=== PATIENT | male | born 1975 | race Caucasian/White ===

== ENCOUNTER 2024-03-10 14:30 | Outpatient (AMB) | payer BC, SELFPAY ==
--- NOTE | 2024-03-10 14:39 | MHC.OFFVIS ---
Vital Signs 03/10/24 14:43 Height 6 ft Weight 289 lb 8 oz BMI 39.3 BP 132/82 Blood Pressure Location Rt brachial Position Sitting Respiration 16 Pulse 101 H Pulse Source Pulse Oximeter Pulse Oximetry (%) 97 Oxygen Delivery Method Room Air Intake Visit Reasons: ENP-Snoring,witnesses apnea and daytime fatigue Intake Note: Pt presents for new pt evaluation for snoring and daytime fatigue. Last PSG done in 2011- WNL. Religion Teacher Required: No Allergies No Known Allergies Allergy (Verified 03/10/24 14:39) Medication List - Last Reconciled 03/10/24 by Johanna Cárdenas MD amlodipine 5 mg PO DAILY fluticasone propionate 50 mcg/actuation (Allergy Relief (fluticasone)) 1 spray intranasal DAILY nabumetone 500 mg PO BID HPI Comments Details: 48y/o male comes for sleep evaluation . Main complaints-loud snoring Sleep questionnaire- Difficulty falling asleep-no Difficulty staying asleep-yes Number of [id number] Snoring-yes Witnessed apneas-yes Gasping arousals-yes Nocturia-yes/ GERD-no Vivid dreams-yes Acting out dreams -no Abnormal behavior in sleep-no ABnormal movements in sleep-no Morning headaches-no Excessive daytime sleepiness-no Daytime naps- yes restless legs- no Hallucinations- no sleep paralysis- no Drop attacks- no Sleep study-yes 2011 He gained about 40 lbs since then Sleep Hygiene- Sleep time-9pm Wake time -5.45 am coffee/stimulant use- random [facility] Medical History (Updated 03/10/24 @ 15:00 by Johanna Cárdenas MD) Hypersomnia Witnessed episode of apnea Loud snoring Low back pain Fatty liver Contact dermatitis Prediabetes Obesity HTN (hypertension) Surgical History H/O vasectomy Family History Father No problems noted. Brother Testicular cancer Social History Household Members: Spouse and Children Housing: House Alcohol intake: current Comment: Weekends- 5-6 beers Patient Tobacco Use Status: Never used Tobacco Use of substances other than those prescribed or required for medical reasons: No Physical Exam Vital Signs: Last Vital Signs Pulse 101 H 03/10/24 14:43 Resp 16 03/10/24 14:43 BP 132/82 03/10/24 14:43 Pulse Ox 97 03/10/24 14:43 Oxygen Delivery Method Room Air 03/10/24 14:43 BMI result Body Mass Index 39.3 Const General: cooperative, healthy appearing and comfortable Nutritional Appearance: obese Orientation/consciousness: patient oriented x3 HEENT Head: Yes normal to inspection and Yes normocephalic Eyes Pupils: Equal, round and reactive pupils present Neuro Other: Mallampatti grade 4 General: patient oriented x3, gait normal, tone normal, moves all extremities and no focal motor deficits Cranial nerves: Yes Facial sensation intact/muscles of mastication intact, Yes Equal, round and reactive pupils present, Yes Bilaterally intact EOM present, Yes Nystagmus not present, Yes Normal facial strength present, Yes Midline tongue present and Yes Symmetric palate elevation present Cognition (Neuro): normal cognition Gait exam (Neuro): Normal gait present Assessment & Plan Assessment & Plan (1) Loud snoring: Code(s): R06.83 - Snoring Category: Medical (2) Witnessed episode of apnea: Code(s): R06.81 - Apnea, not elsewhere classified Category: Medical (3) Hypersomnia: Code(s): G47.10 - Hypersomnia, unspecified Category: Medical Plan I will schedule him for a home sleep test to r/o sleep apnea. Orders: Orders RT home sleep study Today G47.10 - Hypersomnia, unspecified, R06.81 - Apnea, not elsewhere classified, R06.83 - Snoring Coding Level of Care Code New Pt Level 3 (80389) Diagnoses Loud snoring R06.83 Witnessed episode of apnea R06.81 Hypersomnia G47.10 Wever Sleepiness Scale Questions Sitting and reading: would never doze Watching TV: would never doze Sitting inactive in a theater, movie etc.: would never doze As a passenger in a car for an hour without break: would never doze Lying down in the afternoon when circumstances permit: slight chance of dozing Sitting and talking to someone: would never doze Sitting quietly after lunch without alcohol: would never doze In a car, while stopped for a few minutes in the traffic: would never doze ESS < 10: normal, ESS > 12: pathologic: 1
[2024-03-10 14:43] VITALS: BP 132/82; PULSE 101; RESP 16; O2SAT 97; BMI 39.3
== END 2024-03-10 15:04 | disposition home or self-care (01) ==
PROVIDERS: PCP Family Medicine; Visit Provider Psychiatry & Neurology Neurology
DX: R06.83 Snoring (principal); R06.81 Apnea, not elsewhere classified; G47.10 Hypersomnia, unspecified
CPT/HCPCS: 99203

== ENCOUNTER → 2024-03-10 14:30 | Outpatient (BNVA) | payer BC, SELFPAY | PROVIDERS: PCP Family Medicine; Visit Provider Psychiatry & Neurology Neurology ==

== ENCOUNTER → 2024-04-14 10:48 | Outpatient (REF) | payer BC, SELFPAY | LOC: HO.SL 10:48 | PROVIDERS: PCP Family Medicine; Visit Provider Psychiatry & Neurology Neurology | DX: R06.81 Apnea, not elsewhere classified (principal); R06.83 Snoring; G47.10 Hypersomnia, unspecified | CPT/HCPCS: 95806 ==

== ENCOUNTER → 2024-04-14 11:01 | Outpatient (BNV) | payer BC, SELFPAY | PROVIDERS: PCP Family Medicine; Visit Provider Psychiatry & Neurology Neurology | DX: R06.83 Snoring (principal) | CPT/HCPCS: 95806 ==

== ENCOUNTER → 2024-07-03 19:30 | Outpatient (REF) | payer BC, SELFPAY | LOC: HO.SL 19:30 | PROVIDERS: PCP Family Medicine; Visit Provider Psychiatry & Neurology Neurology | DX: G47.10 Hypersomnia, unspecified (principal); R06.81 Apnea, not elsewhere classified; R06.83 Snoring | CPT/HCPCS: 95810 ==

== ENCOUNTER → 2024-07-03 21:21 | Outpatient (BNV) | payer BC, SELFPAY | PROVIDERS: PCP Family Medicine; Visit Provider Psychiatry & Neurology Neurology | DX: G47.33 Obstructive sleep apnea (adult) (pediatric) (principal) | CPT/HCPCS: 95810 ==

== ENCOUNTER 2024-09-16 13:45 | Outpatient (AMB) | payer BC, SELFPAY ==
[2024-09-16 13:51] VITALS: BMI 39.2
--- NOTE | 2024-09-16 13:51 | A.OFFVIS_ITS ---
Vital Signs 09/16/24 13:51 Height 6 ft Weight 289 lb BMI 39.2 Intake Visit Reasons: Follow up Sleep Intake Note: Patient presents for sleep Allergies No Known Allergies Allergy (Verified 09/16/24 13:55) Medication List - Last Reconciled 09/16/24 by Axel Sinclair PA-C amlodipine 5 mg PO DAILY fluticasone propionate 50 mcg/actuation (Allergy Relief (fluticasone)) 1 spray intranasal DAILY nabumetone 500 mg PO BID HPI Comments Details: 48y/o male comes for sleep evaluation . He uses the full face mask is okay, goes to bed at 10-11pm and gets up at 6:45am, gets up for the bathroom 2x, he works for an [employer] and constantly on the computer, uses blue light glasses and multiple eye breaks, through the day. Not too much of a difference, with CPAP use at the moment, however snoring is better per his . Headaches first two nights, felt like he couldn't breathe well but adjusting to it. Denies vision change, N/V, vertigo, dizziness, balance or gait issues. CPAP compliance on phone suki 21 days of use, total usage 6 hours and 27 min, AHI is <0.4, Pressures are at [id number] He is concerned about his weight BMI is 39 today and being pre-diabetic, he would like to speak with weight management, he has gained about 40lbs. He has spoken to PCP - Dr. Plata about his concerns and is ready to make some lifestyle changes. He washes his mask, changes filters and water as needed. [facility] Medical History Hypersomnia Witnessed episode of apnea Loud snoring Low back pain Fatty liver Contact dermatitis Prediabetes Obesity HTN (hypertension) Surgical History H/O vasectomy Family History Father No problems noted. Brother Testicular cancer Social History Household Members: Spouse and Children Housing: House Alcohol intake: current Comment: Weekends- 5-6 beers Patient Tobacco Use Status: Never used Tobacco Review of Systems Const All systems reviewed & are unremarkable except as noted in HPI and below Physical Exam Vital Signs: BMI result Body Mass Index 39.2 Const General: cooperative, healthy appearing and comfortable Nutritional Appearance: obese Orientation/consciousness: patient oriented x3 HEENT Head: Yes normal to inspection and Yes normocephalic Eyes Pupils: Equal, round and reactive pupils present Neuro Other: Mallampatti grade 4 General: patient oriented x3, gait normal, tone normal, moves all extremities and no focal motor deficits Cranial nerves: Yes Facial sensation intact/muscles of mastication intact, Yes Equal, round and reactive pupils present, Yes Bilaterally intact EOM present, Yes Nystagmus not present, Yes Normal facial strength present, Yes Midline tongue present and Yes Symmetric palate elevation present Cognition (Neuro): normal cognition Gait exam (Neuro): Normal gait present Results Reviewed Results Reviewed: Polysomnography Jul 2024 2 apnea events AI of 0.5/hour. 19 hypopnea events occurred for a hypopnea index of 4.9/hour of sleep. 21 apnea and hypopnea events were observed. Desaturations SaO2 was 81%. the duration of O2 less than 88% was 5.1 min. Snoring, soft to moderate. 21 arousals = 6 respiratory arousals, 2 leg movemn No PLMD Assessment & Plan Assessment & Plan (1) Obesity: Code(s): E66.9 - Obesity, unspecified Category: Medical Qualifiers: Body mass index: BMI 39.0-39.9 Obesity classification: adult class 2 (BMI 35 - 39.9) Obesity type: due to excess calories Serious obesity comorbidity presence: unspecified whether serious comorbidity present Qualified Code(s): E66.812 - Obesity, class 2; E66.09 - Other obesity due to excess calories; Z68.39 - Body mass index [BMI] 39.0-39.9, adult (2) Obstructive sleep apnea hypopnea, moderate: Code(s): G47.33 - Obstructive sleep apnea (adult) (pediatric) Category: Medical Plan -CPAP use average hours 6.32 min / night, Total average days 4.25min, Pressures [id number], AHI 0.5 -Patient advised to get at least 7-8 hours of sleep per night. Compliance is stressed today. -Going to bed at a scheduled time and waking up at a set scheduled time, helps to regulate the (sleep,wake cycle, body temperature and release of regulatory hormone which balance the natural circadian rhythm). -Cool, dark environment with soft music, no electronic devices, sets the environment optimizing sleep. -Daily exercise, night time yoga, soft music, diffusing essential oils can help to relax the mind prior to sleep. -Limit caffeine, and fluids to four hours prior to bedtime. - Weight Management, BMI is 29.2, will refer him for management and consultation. -Discussed Mediterranean Diet, and the Dash Diet as patient has several co- morbidities and weight reduction for good outcomes. -Lifestyle changes, exercise 3-5 times per week and daily walking can help with weight reduction. Orders: Referrals Medical Weight Management Referral E66.9 - Obesity, unspecified Coding Level of Care Code Est Pt Level 4 (17012) Diagnoses Class 2 obesity due to excess calories with body mass index (BMI) of 39.0 to 39.9 in adult, unspecified whether serious comorbidity present E66.812; E66.09; Z68.39 Body mass index: BMI 39.0-39.9 Obesity classification: adult class 2 (BMI 35 - 39.9) Obesity type: due to excess calories Serious obesity comorbidity presence: unspecified whether serious comorbidity present Obstructive sleep apnea hypopnea, moderate G47.33 Time Spent (min) 30 Comment Improved Sleep
== END 2024-09-16 14:23 | disposition home or self-care (01) ==
PROVIDERS: PCP Family Medicine; Visit Provider Physician Assistant Medical
DX: E66.812 Obesity, class 2 (principal); E66.09 Other obesity due to excess calories; Z68.39 Body mass index [BMI] 39.0-39.9, adult; G47.33 Obstructive sleep apnea (adult) (pediatric)
CPT/HCPCS: 99214

== ENCOUNTER 2025-01-20 14:14 | Outpatient (AMB) | payer BC, SELFPAY ==
[2025-01-20 14:16] VITALS: BP 128/78; PULSE 89; O2SAT 98; BMI 39.5
--- NOTE | 2025-01-20 14:16 | MHC.OFFVIS ---
Vital Signs 01/20/25 14:16 Height 6 ft Weight 291 lb 4 oz BMI 39.5 BP 128/78 Blood Pressure Location Rt brachial Position Sitting Pulse 89 Pulse Source Pulse Oximeter Pulse Oximetry (%) 98 Oxygen Delivery Method Room Air Intake Visit Reasons: 3mon follow up Intake Note: Patient presents 3 month follow up JOEL. Compliance in chart. Allergies No Known Allergies Allergy (Verified 01/20/25 14:19) HPI Comments Details: 48y/o male comes for sleep apnea evaluation. JOEL Compliance report Oct 2024- Jan 2025 >4 hours usage total days 90/90 days Total hours 6 hours and 51min Leaks Median 5.2 Pressures 9.1cmH20 AHI 0.5/hr He uses the full face and mouth mask, and goes to bed between 10-11pm and gets up at 6:45am with one bathroom break. he works for an [employer] and he is constantly on the computer, uses blue light glasses and multiple eye breaks. He does not notice a difference, with CPAP, but his says snoring is better. He denies headaches , denies vision change, N/V, vertigo, dizziness, balance and or gait issues. He is concerned about his weight BMI is 39 today and being pre-diabetic, he would like to speak with weight management, as he has gained about 40lbs, and wants to start a weight loss GLP-1 agonist. His mood is stable. He washes his mask, changes filters and water as needed. JOEL Compliance report Oct 2024- Jan 2025 >4 hours usage total days 90/90 days Total hours 6 hours and 51min Leaks Median 5.2 Pressures 9.1cmH20 AHI 0.5/hr ON LICENSE OF [facility] Medical History Hypersomnia Witnessed episode of apnea Loud snoring Low back pain Fatty liver Contact dermatitis Prediabetes Obesity HTN (hypertension) Surgical History H/O vasectomy Family History Father No problems noted. Brother Testicular cancer Social History Household Members: Spouse and Children Housing: House Alcohol intake: current Comment: Weekends- 5-6 beers Patient Tobacco Use Status: Never used Tobacco Physical Exam Vital Signs: Last Vital Signs Pulse 89 01/20/25 14:16 BP 128/78 01/20/25 14:16 Pulse Ox 98 01/20/25 14:16 Oxygen Delivery Method Room Air 01/20/25 14:16 BMI result Body Mass Index 39.5 Const General: cooperative, healthy appearing and comfortable Nutritional Appearance: obese Orientation/consciousness: patient oriented x3 HEENT Head: Yes normal to inspection and Yes normocephalic Eyes Pupils: Equal, round and reactive pupils present Neuro Other: Mallampatti grade 4 General: patient oriented x3, gait normal, tone normal, moves all extremities and no focal motor deficits Cranial nerves: Yes Facial sensation intact/muscles of mastication intact, Yes Equal, round and reactive pupils present, Yes Bilaterally intact EOM present, Yes Nystagmus not present, Yes Normal facial strength present, Yes Midline tongue present and Yes Symmetric palate elevation present Cognition (Neuro): normal cognition Gait exam (Neuro): Normal gait present Results Reviewed Results Reviewed: JOEL Compliance report Oct 2024- Jan 2025 >4 hours usage total days 90/90 days Total hours 6 hours and 51min Leaks Median 5.2 Pressures 9.1cmH20 AHI 0.5/hr Assessment & Plan Assessment & Plan (1) Obstructive sleep apnea hypopnea, moderate: Code(s): G47.33 - Obstructive sleep apnea (adult) (pediatric) Category: Medical (2) Hypersomnia: Code(s): G47.10 - Hypersomnia, unspecified Category: Medical (3) Obesity: Code(s): E66.9 - Obesity, unspecified Category: Medical Qualifiers: Obesity type: due to excess calories Obesity classification: adult class 2 (BMI 35 - 39.9) Serious obesity comorbidity presence: unspecified whether serious comorbidity present Body mass index: BMI 39.0-39.9 Qualified Code(s): E66.812 - Obesity, class 2; E66.09 - Other obesity due to excess calories; Z68.39 - Body mass index [BMI] 39.0-39.9, adult Plan JOEL compliance is stressed. Weight Management, BMI is 39.5, will refer him for management and consultation. Discussed Mediterranean Diet, and the Dash Diet as patient has several co-morbidities and weight reduction for good outcomes. Lifestyle changes, exercise 3-5 times per week and daily walking can help with weight reduction. Patient Instructions: Sleep Hygiene provided: set a scheduled bedtime and wake time to help regulate the circadian rhythm and balance the release of pituitary hormones. Sleep in a dark room, temperatures below 68 degrees, and no devices n bed. Limit caffeinated products 6 hours prior to bed, and limit fluids 2-4 hours prior to bed. Gentle night yoga, diffusing essential oils, and playing soft music can be relaxing. Weight Management, BMI is 39.5, will refer him for management and consultation. Discussed Mediterranean Diet, and the Dash Diet as patient has several co-morbidities and weight reduction for good outcomes. Lifestyle changes, exercise 3-5 times per week and daily walking can help with weight reduction. Coding Level of Care Code Est Pt Level 4 (60998) Diagnoses Obstructive sleep apnea hypopnea, moderate G47.33 Hypersomnia G47.10 Class 2 obesity due to excess calories with body mass index (BMI) of 39.0 to 39.9 in adult, unspecified whether serious comorbidity present E66.812; E66.09; Z68.39 Obesity type: due to excess calories Obesity classification: adult class 2 (BMI 35 - 39.9) Serious obesity comorbidity presence: unspecified whether serious comorbidity present Body mass index: BMI 39.0-39.9 Time Spent (min) 30 Comment Improving
== END 2025-01-20 14:49 | disposition home or self-care (01) ==
LOC: HO.HSMS 14:14
PROVIDERS: PCP Family Medicine; Visit Provider Physician Assistant Medical
DX: G47.33 Obstructive sleep apnea (adult) (pediatric) (principal); G47.10 Hypersomnia, unspecified; E66.812 Obesity, class 2; E66.09 Other obesity due to excess calories; Z68.39 Body mass index [BMI] 39.0-39.9, adult
CPT/HCPCS: 99214

== ENCOUNTER → 2025-01-20 14:14 | Outpatient (BNVA) | payer BC, SELFPAY | PROVIDERS: PCP Family Medicine; Visit Provider Physician Assistant Medical ==

== ENCOUNTER 2025-08-21 13:48 | Outpatient (AMB) | payer BC, SELFPAY ==
[2025-08-21 13:54] VITALS: BP 128/86; PULSE 92; O2SAT 97; BMI 39.8
--- NOTE | 2025-08-21 13:54 | A.OFFVIS_ITS ---
Vital Signs 08/21/25 13:54 Height 6 ft Weight 293 lb 4 oz BMI 39.8 BP 128/86 Blood Pressure Location Rt brachial Position Sitting Pulse 92 Pulse Source Pulse Oximeter Pulse Oximetry (%) 97 Oxygen Delivery Method Room Air Intake Visit Reasons: 6mnth Intake Note: Patient presents follow up JOEL. Compliance in chart(89/90days, >=4hrs-98%, Average Usage-7hr 7min, Med Pressure-9.3, Med Leaks-4.1, AHI-0.5). Accompanied by: Self / Same As Patient Allergies No Known Allergies Allergy (Verified 08/21/25 13:56) HPI Comments Details: 49y/o male presents for a f/u of JOEL. JOEL Compliance report 05/2025 to 08/2025 >4 hours usage total days 89/90 days and >4 hours is 98% Avg use is 7 hours and 7min. Med press 9.3, Leaks 4.1 AHI is 0.5/hr. He washes his mask, rinses hoses, changes filters and fills reservoir with water. Since changing his mask to the airtouch F20 full face mask, sleep has improved. Sleeps soundly from 11pm to 7am, with one bathroom break. His no longer complaints of the loud snoring. He works for an [employer] and he is constantly on the computer, uses blue light glasses. He denies headaches, vision changes, GERD, N/V, vertigo, dizziness, balance and or gait issues. He is concerned about his weight BMI is 39, he started weight management, needs insurance approval for GLP-1 agonist. His mood is stable and memory is good. Denies RLS symptoms. [facility] Medical History Hypersomnia Witnessed episode of apnea Loud snoring Low back pain Fatty liver Contact dermatitis Prediabetes Obesity HTN (hypertension) Surgical History H/O colonoscopy H/O vasectomy Family History Father No problems noted. Brother Testicular cancer Social History Household Members: Spouse and Children Housing: House Alcohol intake: current Comment: Weekends- 5-6 beers Patient Tobacco Use Status: Never used Tobacco Physical Exam Vital Signs: Last Vital Signs Pulse 92 08/21/25 13:54 BP 128/86 08/21/25 13:54 Pulse Ox 97 08/21/25 13:54 Oxygen Delivery Method Room Air 08/21/25 13:54 BMI result Body Mass Index 39.8 Const General: cooperative, healthy appearing and comfortable Nutritional Appearance: obese Orientation/consciousness: patient oriented x3 HEENT Head: Yes normal to inspection and Yes normocephalic Eyes Pupils: Equal, round and reactive pupils present Neuro Other: Mallampatti grade 4 General: patient oriented x3, gait normal, tone normal, moves all extremities and no focal motor deficits Cranial nerves: Yes Facial sensation intact/muscles of mastication intact, Yes Equal, round and reactive pupils present, Yes Bilaterally intact EOM present, Yes Nystagmus not present, Yes Normal facial strength present, Yes Midline tongue present and Yes Symmetric palate elevation present Cognition (Neuro): normal cognition Gait exam (Neuro): Normal gait present Motor exam (neuro): 5/5 motor strength present throughout and Normal motor muscle tone present throughout Psych Appearance: grossly normal Attitude: cooperative Thought process: Normal thought process present Results Reviewed Results Reviewed: JOEL compliance reviewed with pt today. Assessment & Plan Assessment & Plan (1) Obstructive sleep apnea hypopnea, moderate: Code(s): G47.33 - Obstructive sleep apnea (adult) (pediatric) Category: Medical (2) Hypersomnia: Code(s): G47.10 - Hypersomnia, unspecified Category: Medical (3) Obesity: Code(s): E66.9 - Obesity, unspecified Category: Medical Qualifiers: Obesity type: due to excess calories Obesity classification: adult class 2 (BMI 35 - 39.9) Serious obesity comorbidity presence: unspecified whether serious comorbidity present Body mass index: BMI 39.0-39.9 Qualified Code(s): E66.812 - Obesity, class 2; E66.09 - Other obesity due to excess calories; Z68.39 - Body mass index [BMI] 39.0-39.9, adult Plan JOEL compliance reviewed with pt. He has refreshing sleep since changing to the new mask. Weight Management, BMI is 39.5, needs insurance approval for GLP1. F/U in 6 months. Patient Instructions: Sleep Hygiene provided: set a scheduled bedtime and wake time to help regulate the circadian rhythm and balance the release of pituitary hormones. Sleep in a dark room, temperatures below 68 degrees, and no devices n bed. Limit caffei nated products 6 hours prior to bed, and limit fluids 2-4 hours prior to bed. Gentle night yoga, diffusing essential oils, and playing soft music can be relaxing. Coding Level of Care Code Est Pt Level 4 (02031) Diagnoses Obstructive sleep apnea hypopnea, moderate G47.33 Hypersomnia G47.10 Class 2 obesity due to excess calories with body mass index (BMI) of 39.0 to 39.9 in adult, unspecified whether serious comorbidity present E66.812; E66.09; Z68.39 Obesity type: due to excess calories Obesity classification: adult class 2 (BMI 35 - 39.9) Serious obesity comorbidity presence: unspecified whether serious comorbidity present Body mass index: BMI 39.0-39.9
== END 2025-08-21 14:20 | disposition home or self-care (01) ==
LOC: HO.HSMS 13:48
PROVIDERS: PCP Family Medicine; Visit Provider Physician Assistant Medical
DX: G47.33 Obstructive sleep apnea (adult) (pediatric) (principal); G47.10 Hypersomnia, unspecified; E66.812 Obesity, class 2; E66.09 Other obesity due to excess calories; Z68.39 Body mass index [BMI] 39.0-39.9, adult
CPT/HCPCS: 99214